=== PATIENT | female | born 1945 | race Caucasian/White ===

== ENCOUNTER 2017-11-30 19:12 | Observation (INO) | payer MEDICARE, OTHER, SELFPAY ==
[2017-11-30 19:44] VITALS: BP 146/89; PULSE 112; RESP 16; TEMP 36.6; O2SAT 94; BMI 21.3
--- NOTE | 2017-11-30 20:42 | ED.GIBLEED ---
HPI - GI Bleed General Chief complaint: GI Bleed Stated complaint: blood in stool,increased confusion Time Seen by Provider: 11/30/17 19:58 Source: patient Mode of arrival: ambulatory Limitations: no limitations History of Present Illness HPI Narrative: Patient is a 72-year-old female who is a poor historian and here with a friend. He says though she has had increased confusion over the last 2 weeks. She has had at least daily bright red blood per stool for maybe a year. She says her stool has become pencil thin. She has lost 30 lb of weight over the last year as well. She denies any abdominal pain nausea vomiting or fevers. She denies any shortness of breath chest pain or heart palpitations. However while I am talking to her, her heart rate has increased his into the 110's but her O2 sat is 85-86% with a good wave form and is correlating well. Related Data Home Medications Medication Instructions Recorded Confirmed No Known Home Medications 12/01/17 12/01/17 Allergies Allergy/AdvReac Type Severity Reaction Status Date / Time No Known Drug Allergies Allergy Verified 11/30/17 19:44 Review of Systems Review of Systems All systems reviewed & are unremarkable except as noted in HPI and below Constitutional Reports lethargy, Reports poor appetite and Reports weight loss (30 lb over 1 year) Eyes Denies change in vision, Denies eye discharge, Denies irritation and Denies loss of vision ENT Ears, Nose, Mouth, and Throat: Denies change in voice, Denies dizziness, Denies neck pain and Denies sore throat Cardiovascular Denies chest pain, Denies irregular heart rhythm, Denies lightheadedness, Denies palpitations, Denies dyspnea, Denies dyspnea on exertion and Denies orthopnea Respiratory Denies cough, Denies dyspnea, Denies dyspnea on exertion and Denies wheezing Gastrointestinal Gastrointestinal: Reports as per HPI Genitourinary Denies hematuria, Denies flank pain, Denies urinary incontinence and Denies urinary urgency Musculoskeletal Denies neck pain Integumentary/Breasts Denies pruritus, Denies erythema, Denies rash and Denies wounds Neurologic Reports as per HPI, Reports abnormal speech (Slow to respond), Denies dizziness, Denies loss of vision and Reports memory loss Psychiatric Reports memory loss Endocrine Denies palpitations Allergic/Immunologic Denies wheezing [facility] Medical History Hypothyroid (Acute) Social History household members: none Smoking Status: Never smoker Exam Initial Vital Signs Initial Vital Signs: Vital Signs Temperature 97.8 F 11/30/17 19:44 Pulse Rate 112 H 11/30/17 19:44 Respiratory Rate 16 11/30/17 19:44 Blood Pressure 146/89 H 11/30/17 19:44 Pulse Oximetry 94 11/30/17 19:44 Const General: cooperative, well developed and No anxious Nutritional Appearance: well nourished Orientation: alert, awake, oriented x3 and not confused HENMT Head: normal to inspection and normocephalic Ears: hearing grossly normal bilaterally Mouth: oral mucosae normal Eyes General: appearance normal, both eyes and all related structures Neck Neck: normal visual inspection, full ROM, no meningeal signs, trachea midline and No JVD Chest Chest: normal inspection of the chest Resp Effort & Inspection: normal respiratory effort, able to speak in complete sentences, respiratory effort not decreased, no respiratory distress and no use of accessory muscles Auscultation: clear to auscultation bilaterally, no rales, no rhonchi and no wheezes Cardio Rate: regular rate and tachycardic Rhythm: regular rhythm Heart Sounds: no click, no gallops, no murmurs and no rubs Pulses: normal peripheral pulses GI Inspection: non-distended Palpation: soft, no hepatosplenomegaly, No guarding, No pulsatile mass and No tender Auscultation: normal bowel sounds Rectal Exam: visual inspection normal, normal sphincter tone, heme negative stool and No mass Skin General: no rashes or lesions noted and No pallor Lesions: no lesions Rashes: no rashes Neuro General: alert, oriented x3, gait normal and no focal motor deficits Speech: speech normal Course Orders Ordered: ED Orders 11/30/17 20:05 Complete Blood Count AUTO DIFF Stat Comprehensive Metabolic Panel Stat Lipase Stat Troponin & CK Cardiac Panel Stat Type and Screen Stat 11/30/17 20:47 CT abdomen pelvis w con Stat CT angio chest PE protocol Stat Arterial Blood Gas Stat 11/30/17 21:00 Arterial Blood Gas Stat 11/30/17 21:01 XR chest 1V Stat 11/30/17 21:05 Lactate (Lactic Acid) Stat 12/01/17 00:28 Consult to Physician Routine Sodium Chloride (Normal Saline 0.9%) 1,000 mls @ 125 mls/hr IV CONT TAMMI Last Admin: 12/01/17 01:30 Dose: 125 mls/hr Discontinued Medications Albuterol/Ipratropium (Duoneb) 3 ml INH NOW ONE Stop: 11/30/17 22:01 Last Admin: 11/30/17 23:15 Dose: 3 ml Pantoprazole Sodium (Protonix) 40 mg IV NOW ONE Stop: 11/30/17 20:48 Last Admin: 11/30/17 21:11 Dose: 40 mg Vital Signs - 8 hr 11/30/17 21:00 11/30/17 22:33 11/30/17 23:27 Temperature Pulse Rate 110 H 81 90 Respiratory Rate 26 H 22 12 Blood Pressure Blood Pressure [Left Arm] 130/77 H 121/78 H Pulse Oximetry 99 96 11/30/17 23:34 12/01/17 00:02 12/01/17 00:31 Temperature 97.8 F 97.6 F Pulse Rate 105 H 118 H 87 Respiratory Rate 16 17 18 Blood Pressure 107/48 L 140/77 H Blood Pressure [Left Arm] 139/79 H Pulse Oximetry 95 97 MDM - GI Bleed Medical Records Attestation: I reviewed the patient's medical records. Lab Data Attestation: I reviewed the patient's lab results. Result diagrams: 11/30/17 20:05 11/30/17 20:05 Lab Results 11/30/17 11/30/17 11/30/17 Range/Units 20:05 20:05 20:05 WBC 6.0 (4.5-11.0) X10^3/uL RBC 5.07 (4.0-5.2) X10^6/uL Hgb 15.3 (12.0-16.0) g/dL Hct 45.7 (36-46) % MCV 90.1 (80-100) fL MCH 30.1 (26-34) PG MCHC 33.4 (30-36) % RDW 14.8 (11.6-14.8) % Plt Count 266 (150-400) X10^3/uL Neut % (Auto) 62.5 (50-75) % Lymph % (Auto) 25.6 (25-40) % Bowman % (Auto) 10.2 (3-14) % Eos % (Auto) 0.8 L (2-4) % Baso % (Auto) 0.9 (0-2) % Neut # (Auto) 3700 (9463-1788) /uL ABG pH (7.35-7.45) ABG pCO2 (35-45) mmHg ABG pO2 (80-105) mmHg ABG HCO3 (23-27) mmol/L ABG Total CO2 (23-27) mmol/L ABG O2 Saturation (95-100) % ABG Base Excess (-2-3) mmol/L FiO2 Sodium 142 (137-145) mmol/L Potassium 4.0 (3.4-5.1) mmol/L Chloride 104 (98-107) mmol/L Carbon Dioxide 27 (22-32) mmol/L BUN 17 (7-17) mg/dL Creatinine 0.90 (0.52-1.04) mg/dL Estimated GFR > 60.0 (>60) mL/min BUN/Creatinine Ratio 18.9 (6-22) Glucose 105 (80-110) mg/dL Lactate (0.7-2.1) mmol/L Calcium 9.5 (8.4-10.2) mg/dL Total Bilirubin 0.8 (0.2-1.3) mg/dL AST 42 H (14-36) IU/L ALT 30 (9-52) IU/L Alkaline Phosphatase 79 (38-126) U/L Total Creatine Kinase 57 (30-135) U/L Troponin I < 0.012 (0.01-0.034) ng/mL Total Protein 7.0 (6.3-8.2) g/dL Albumin 4.4 (3.5-5.0) g/dL Globulin 2.6 (1.7-4.1) g/dL Albumin/Globulin Ratio 1.7 (1.0-2.8) Lipase 74 (23-300) U/L Blood Type O Positive Antibody Screen Negative 11/30/17 11/30/17 Range/Units 21:00 21:05 WBC (4.5-11.0) X10^3/uL RBC (4.0-5.2) X10^6/uL Hgb (12.0-16.0) g/dL Hct (36-46) % MCV (80-100) fL MCH (26-34) PG MCHC (30-36) % RDW (11.6-14.8) % Plt Count (150-400) X10^3/uL Neut % (Auto) (50-75) % Lymph % (Auto) (25-40) % Bowman % (Auto) (3-14) % Eos % (Auto) (2-4) % Baso % (Auto) (0-2) % Neut # (Auto) (1277-5758) /uL ABG pH 7.51 H (7.35-7.45) ABG pCO2 28.9 L (35-45) mmHg ABG pO2 44 L* (80-105) mmHg ABG HCO3 23 (23-27) mmol/L ABG Total CO2 24 (23-27) mmol/L ABG O2 Saturation 85 L (95-100) % ABG Base Excess 0.0 (-2-3) mmol/L FiO2 50 Sodium (137-145) mmol/L Potassium (3.4-5.1) mmol/L Chloride (98-107) mmol/L Carbon Dioxide (22-32) mmol/L BUN (7-17) mg/dL Creatinine (0.52-1.04) mg/dL Estimated GFR (>60) mL/min BUN/Creatinine Ratio (6-22) Glucose (80-110) mg/dL Lactate 0.9 (0.7-2.1) mmol/L Calcium (8.4-10.2) mg/dL Total Bilirubin (0.2-1.3) mg/dL AST (14-36) IU/L ALT (9-52) IU/L Alkaline Phosphatase (38-126) U/L Total Creatine Kinase (30-135) U/L Troponin I (0.01-0.034) ng/mL Total Protein (6.3-8.2) g/dL Albumin (3.5-5.0) g/dL Globulin (1.7-4.1) g/dL Albumin/Globulin Ratio (1.0-2.8) Lipase (23-300) U/L Blood Type Antibody Screen ABG Data Attestation: I personally reviewed and interpreted this ABG as follows: Interpretation: Respiratory alkalosis and hypoxic Imaging Data Chest x-ray: Radiologist's impression: PROCEDURE: XR CHEST 1V INDICATIONS: hypoxic TECHNIQUE: One view of the chest was acquired. COMPARISON: None. FINDINGS: Surgical changes and devices: None. Lungs and pleura: No pleural effusions or pneumothorax. There is a 1 cm pulmonary opacity projecting over the right lower lobe. Hyperinflation. Mediastinum: Mediastinal contours appear normal. Heart size is normal. Bones and chest wall: No suspicious bony lesions. Overlying soft tissues appear unremarkable. IMPRESSION: Right lower lobe pulmonary opacity. Consider chest CT with contrast for further evaluation. Hyperinflation most consistent with COPD. Dictated by: Jerrell Bah M.D. on 11/30/2017 at 21:25 CT scan - chest: Radiologist's impression: PROCEDURE: CT ANGIO CHEST PE PROTOCOL INDICATIONS: hypoxia TECHNIQUE: After the administration of intravenous contrast, 2 mm thick sections acquired from the pulmonary apices to the posterior costophrenic angles. 3-dimensional maximum intensity projection (MIP) coronal and sagittal reformats were then acquired through the thorax. For radiation dose reduction, the following was used: automated exposure control, adjustment of mA and/or kV according to patient size. COMPARISON: [facility], CT, SOFT TISSUE NECK W CONTRAST, 11/04/2011, 11:39. FINDINGS: Image quality: Excellent. Pulmonary arteries: Pulmonary arteries are normal in size, and demonstrate no intraluminal filling defects to suggest central pulmonary embolism. Lungs and pleura: Dependent atelectasis right greater than left. Otherwise the lungs are clear. No pleural effusions or pneumothorax. Central and peripheral airways are patent. Mediastinum: Heart size is normal, without pericardial effusion. No mediastinal or hilar adenopathy. Thoracic aorta is mildly dilated proximally measuring up to 4 CM. Esophagus is normal in caliber, without hiatal hernia. Bones and chest wall: Age-indeterminate T7 and T12 vertebral body compression fractures. Thyroid gland is grossly normal where seen. No axillary or supraclavicular adenopathy. Abdomen: There is an 18 mm right adrenal nodule and multiple hepatic masses. Left renal scarring with dystrophic calcification. IMPRESSION: 1. No acute pulmonary emboli. 2. Dilatation of the aortic root measuring up to 4 CM. 3. Age-indeterminate T7 and T12 vertebral body compression fractures. 4. Multiple hepatic masses. Please refer to today's abdomen and pelvis CT for further evaluation. Dictated by: Jerrell Bah M.D. on 11/30/2017 at 22:04 CT scan - abdomen: Radiologist's impression: PROCEDURE: CT ABDOMEN PELVIS W CON INDICATIONS: gi bleed TECHNIQUE: After the administration of intravenous contrast, 5 mm thick sections acquired from the diaphragm to the symphysis. 5 mm coronal and sagittal reformats were acquired. For radiation dose reduction, the following was used: automated exposure control, adjustment of mA and/or kV according to patient size. COMPARISON: [facility], CT, SOFT TISSUE NECK W CONTRAST, 11/04/2011, 11:39. FINDINGS: Image quality: Excellent. ABDOMEN: Lung bases: Lung bases are clear. Heart size is normal. Solid organs: Innumerable hepatic metastasis measuring up to 3.4 CM. The gallbladder is contracted about a gallstone. There is no CT evidence of acute cholecystitis. The pancreas and spleen are normal. There is a 12 mm right adrenal nodule. Left adrenal gland is normal. Kidneys demonstrate cysts and superior left renal calcified scarring. Otherwise they are radiographically normal. Peritoneum and bowel: Irregular wall thickening in the distal sigmoid colon. There is a low-density mass extending posteriorly from this area measuring 3.5 x 2.3 CM (se 13 im 34). Appendix and small bowel are normal. Nodes and vessels: No retroperitoneal or mesenteric adenopathy by size criteria. Aorta and inferior vena cava are normal in size. Miscellaneous: No ventral hernias. PELVIS: Genitourinary: Bladder wall thickness is normal. There is a 3.3 cm right adnexal nodule. Uterus is present. Miscellaneous: No inguinal hernias. The there is pelvic lymphadenopathy (for example a right perirectal lymph node measures 9 mm (se 10 im 66). There are numerous further abnormal lymph nodes in the pelvic fat about the abnormal segment of sigmoid colon. Bones: No suspicious bony lesions. Age-indeterminate T12 vertebral body compression fracture. IMPRESSION: 1. Irregular distal sigmoid colon mass highly concerning for primary malignancy. A low-density lobulation of the mass extends posteriorly/superiorly and may represent a focal contained perforation or further soft tissue mass. There is no obstruction or surrounding inflammatory change. There are numerous pelvic lymph nodes which are abnormal. 2. Innumerable hepatic metastasis. These findings would be amenable to percutaneous guided sampling if needed. 3. Age-indeterminate T12 vertebral body compression fracture. 4. The gallbladder is contracted about a gallstone. There is no CT evidence of acute gallstone is. Dictated by: Jerrell Bah M.D. on 11/30/2017 at 22:10 MDM Narrative Medical decision making narrative: At no time did patient looked like she was in respiratory distress. No tachypnea or hyperventilation, though ABG is consistent with hyperventilation. She is placed on oxygen initially high-flow but has been able to be weaned down and is now on a couple liters. CT for PE is negative. He is not anemic. Abdominal CT does reveal a sigmoid mass with hepatic metastasis. I have discussed these results with patient. At this time she is questioning if she would want chemotherapy or radiation or any further testing. However due to her significant hypoxia initially recommend staying in hospital for treatment of hypoxia and further evaluation if warranted and wanted of abdominal mass. I have discussed case with Dr. Ortiz. At this time no clear real explanation of hypoxia. However she does have new abdominal mass Discharge Plan Departure Patient Disposition: Admitted As Inpatient Clinical Impression: Colon cancer, Acute respiratory failure Discharge Date/Time: 12/01/17 00:09 Interventions: ED Discharge Assessment Last Done: 12/01/17 00:02 Admit Date/Time: 11/30/17 23:14 Admit Provider: Danielle Ortiz
--- NOTE | 2017-11-30 20:47 | DI.CT.S_ITS ---
PROCEDURE: CT ANGIO CHEST PE PROTOCOL INDICATIONS: hypoxia TECHNIQUE: After the administration of intravenous contrast, 2 mm thick sections acquired from the pulmonary apices to the posterior costophrenic angles. 3-dimensional maximum intensity projection (MIP) coronal and sagittal reformats were then acquired through the thorax. For radiation dose reduction, the following was used: automated exposure control, adjustment of mA and/or kV according to patient size. COMPARISON: [facility], CT, SOFT TISSUE NECK W CONTRAST, 11/04/2011, 11:39. FINDINGS: Image quality: Excellent. Pulmonary arteries: Pulmonary arteries are normal in size, and demonstrate no intraluminal filling defects to suggest central pulmonary embolism. Lungs and pleura: Dependent atelectasis right greater than left. Otherwise the lungs are clear. No pleural effusions or pneumothorax. Central and peripheral airways are patent. Mediastinum: Heart size is normal, without pericardial effusion. No mediastinal or hilar adenopathy. Thoracic aorta is mildly dilated proximally measuring up to 4 CM. Esophagus is normal in caliber, without hiatal hernia. Bones and chest wall: Age-indeterminate T7 and T12 vertebral body compression fractures. Thyroid gland is grossly normal where seen. No axillary or supraclavicular adenopathy. Abdomen: There is an 18 mm right adrenal nodule and multiple hepatic masses. Left renal scarring with dystrophic calcification. IMPRESSION: 1. No acute pulmonary emboli. 2. Dilatation of the aortic root measuring up to 4 CM. 3. Age-indeterminate T7 and T12 vertebral body compression fractures. 4. Multiple hepatic masses. Please refer to today's abdomen and pelvis CT for further evaluation. Dictated by: Jerrell Bah M.D. on 11/30/2017 at 22:04 Approved by: Jerrell Bah M.D. on 11/30/2017 at 22:10
--- NOTE | 2017-11-30 20:47 | DI.CT.S_ITS ---
PROCEDURE: CT ABDOMEN PELVIS W CON INDICATIONS: gi bleed TECHNIQUE: After the administration of intravenous contrast, 5 mm thick sections acquired from the diaphragm to the symphysis. 5 mm coronal and sagittal reformats were acquired. For radiation dose reduction, the following was used: automated exposure control, adjustment of mA and/or kV according to patient size. COMPARISON: [facility], CT, SOFT TISSUE NECK W CONTRAST, 11/04/2011, 11:39. FINDINGS: Image quality: Excellent. ABDOMEN: Lung bases: Lung bases are clear. Heart size is normal. Solid organs: Innumerable hepatic metastasis measuring up to 3.4 CM. The gallbladder is contracted about a gallstone. There is no CT evidence of acute cholecystitis. The pancreas and spleen are normal. There is a 12 mm right adrenal nodule. Left adrenal gland is normal. Kidneys demonstrate cysts and superior left renal calcified scarring. Otherwise they are radiographically normal. Peritoneum and bowel: Irregular wall thickening in the distal sigmoid colon. There is a low-density mass extending posteriorly from this area measuring 3.5 x 2.3 CM (se 13 im 34). Appendix and small bowel are normal. Nodes and vessels: No retroperitoneal or mesenteric adenopathy by size criteria. Aorta and inferior vena cava are normal in size. Miscellaneous: No ventral hernias. PELVIS: Genitourinary: Bladder wall thickness is normal. There is a 3.3 cm right adnexal nodule. Uterus is present. Miscellaneous: No inguinal hernias. The there is pelvic lymphadenopathy (for example a right perirectal lymph node measures 9 mm (se 10 im 66). There are numerous further abnormal lymph nodes in the pelvic fat about the abnormal segment of sigmoid colon. Bones: No suspicious bony lesions. Age-indeterminate T12 vertebral body compression fracture. IMPRESSION: 1. Irregular distal sigmoid colon mass highly concerning for primary malignancy. A low-density lobulation of the mass extends posteriorly/superiorly and may represent a focal contained perforation or further soft tissue mass. There is no obstruction or surrounding inflammatory change. There are numerous pelvic lymph nodes which are abnormal. 2. Innumerable hepatic metastasis. These findings would be amenable to percutaneous guided sampling if needed. 3. Age-indeterminate T12 vertebral body compression fracture. 4. The gallbladder is contracted about a gallstone. There is no CT evidence of acute gallstone is. Dictated by: Jerrell Bah M.D. on 11/30/2017 at 22:10 Approved by: Jerrell Bah M.D. on 11/30/2017 at 22:20
[2017-11-30 20:56] LABS: Add Manual Diff / Slide Review NO; Basophils Percent Auto 0.9 % (0-2); Eosinophils Percent Auto 0.8 % (2-4); Hematocrit 45.7 % (36-46); Hemoglobin 15.3 g/dL (12.0-16.0); Lymphocytes Percent Auto 25.6 % (25-40); Mean Corpuscular HGB Conc 33.4 % (30-36); Mean Corpuscular Hemoglobin 30.1 PG (26-34); Mean Corpuscular Volume 90.1 fL (80-100); Monocytes Percent Auto 10.2 % (3-14); Neutrophils Absolute Auto 3700 /uL (3000-5900); Neutrophils Percent Auto 62.5 % (50-75); Platelet Count 266 X10^3/uL (150-400); Red Blood Cell Count 5.07 X10^6/uL (4.0-5.2); Red Cell Distribution Width 14.8 % (11.6-14.8)
[2017-11-30 21:00] VITALS: BP 130/77; PULSE 110; RESP 26
--- NOTE | 2017-11-30 21:01 | DI.RAD.S_ITS ---
PROCEDURE: XR CHEST 1V INDICATIONS: hypoxic TECHNIQUE: One view of the chest was acquired. COMPARISON: None. FINDINGS: Surgical changes and devices: None. Lungs and pleura: No pleural effusions or pneumothorax. There is a 1 cm pulmonary opacity projecting over the right lower lobe. Hyperinflation. Mediastinum: Mediastinal contours appear normal. Heart size is normal. Bones and chest wall: No suspicious bony lesions. Overlying soft tissues appear unremarkable. IMPRESSION: Right lower lobe pulmonary opacity. Consider chest CT with contrast for further evaluation. Hyperinflation most consistent with COPD. Dictated by: Jerrell Bah M.D. on 11/30/2017 at 21:25 Approved by: Jerrell Bah M.D. on 11/30/2017 at 21:30
[2017-11-30 21:02] LABS: Alanine Aminotransferase 30 IU/L (9-52); Albumin 4.4 g/dL (3.5-5.0); Albumin Globulin Ratio 1.7 (1.0-2.8); Alkaline Phosphatase 79 U/L (38-126); Aspartate Aminotransferase 42 IU/L (14-36); BUN Creatinine Ratio 18.9 (6-22); Bilirubin Total 0.8 mg/dL (0.2-1.3); Blood Urea Nitrogen 17 mg/dL (7-17); Calcium 9.5 mg/dL (8.4-10.2); Carbon Dioxide 27 mmol/L (22-32); Chloride 104 mmol/L (98-107); Creatine Kinase 57 U/L (30-135); Estimated Glomerular Filt Rate > 60.0 mL/min (>60); Globulin 2.6 g/dL (1.7-4.1); Glucose 105 mg/dL (80-110); HEMOLYSIS < 15 (0-50); Lipase 74 U/L (23-300); Sodium 142 mmol/L (137-145)
[2017-11-30] MEDS: PANTOPRAZOLE 40 MG VIAL IV (21:11)
[2017-11-30 21:22] LABS: Troponin I < 0.012 ng/mL (0.01-0.034)
[2017-11-30 21:32] LABS: Lactate (Lactic Acid) 0.9 mmol/L (0.7-2.1)
[2017-11-30 21:32] LABS: PCO2 ABG 28.9 mmHg (35-45); pH ABG 7.51 (7.35-7.45)
[2017-11-30 21:33] LABS: PO2 ABG 44 mmHg (80-105)
[2017-11-30 21:34] LABS: Fractionated Inspired Oxygen 50; HCO3 ABG 23 mmol/L (23-27); Oxygen Saturation ABG 85 % (95-100); TCO2 ABG 24 mmol/L (23-27)
[2017-11-30 22:33] VITALS: BP 121/78; PULSE 81; RESP 22; O2SAT 99
--- NOTE | 2017-11-30 22:39 | PC.NURSE ---
1999 Harpreet MILLAN completed POC urine with negative results. Urine not sent.
[2017-11-30] MEDS: ALBUTEROL/IPRATROPIUM 3 ML AMPUL INH (23:15)
[2017-11-30 23:27] VITALS: PULSE 90; RESP 12; O2SAT 96
[2017-11-30 23:34] VITALS: BP 139/79; PULSE 105; RESP 16; TEMP 36.6
--- NOTE | 2017-11-30 23:44 | PC.NURSE ---
attempt to call report. RN busy, will call back
--- NOTE | 2017-12-01 | DI.CT.S_ITS ---
PROCEDURE: CT HEAD/BRAIN WO/W CON INDICATIONS: metastatic cancer TECHNIQUE: 4.5 mm thick angled axial sections acquired from the foramen magnum to the vertex both before and after the administration of intravenous contrast, with coronal and sagittal reformats. For radiation dose reduction, the following was used: automated exposure control, adjustment of mA and/or kV according to patient size. COMPARISON: [facility], CT, CT ANGIO CHEST PE PROTOCOL, 11/30/2017, 21:12. [facility], CT, CT ABDOMEN PELVIS W CON, 11/30/2017, 21:12. FINDINGS: Image quality: Excellent. CSF spaces: Basal cisterns are patent. No extra-axial fluid collections. Ventricles are symmetric in size and shape. Brain: There are multiple hyperdense, ring enhancing masses involving the left frontal lobe, left posterior temporal lobe, right parietal lobe, and the left mid brain, consistent with intracranial metastases. The largest lesion is in the left frontal lobe measuring 2.4 cm in diameter. There is marked vasogenic edema in the left frontal lobe with effacement of cerebral sulci. No midline shift. Hyperattenuation of the masses may be associated with intratumoral bleed or calcification. Skull and face: Calvarium and visualized facial bones appear intact, without suspicious lesions. Sinuses: Visualized sinuses and mastoids are clear. IMPRESSION: Multiple hyperdense ring enhancing masses involving the left frontal and posterior temporal lobes, right parietal lobe, and mid brain, consistent with intracranial metastases. Hyperattenuation of the masses may be secondary to intratumoral bleed or calcification. The result was discussed with Dr. Obrien on 12/01/17 at 1515 hours. Dictated by: Jean Pierre Tsang M.D. on 12/01/2017 at 9:40 Transcribed by: DIXON on 12/01/2017 at 9:52 Approved by: Jean Pierre Tsang M.D. on 12/01/2017 at 18:19
--- NOTE | 2017-12-01 00:01 | PC.NURSE ---
Second attempt to call report unsuccessful.. RN still unable to take
[2017-12-01 00:02] VITALS: BP 107/48; PULSE 118; RESP 17; O2SAT 95
[2017-12-01 00:30] VITALS: BMI 21.7
[2017-12-01 00:31] VITALS: BP 140/77; PULSE 87; RESP 18; TEMP 36.4; O2SAT 97
[2017-12-01] MEDS: SODIUM CHLORIDE 0.9% 1,000 ML 125 ML IV (01:30)
--- NOTE | 2017-12-01 01:37 | PC.NURSE ---
Admitted to room 215 from ER, pt's. accompanied by her Mary. Oriented to her room, how to use her call light, TV & bed controls. Paged Dr. Ortiz the second time to get an order for anxiety med. Pt's. very restless & states I want drugs to help me relax so I can go to sleep. Awaiting call back from Dr. Ortiz. Will monitor.
--- NOTE | 2017-12-01 02:28 | PC.NURSE ---
Pt. still wide awake, requested to page Dr. Ortiz 1 more time to get med. to help her sleep. Paged Dr. Ortiz for the 3rd time. Awaiting call back.
[2017-12-01 05:55] VITALS: BP 125/77; PULSE 75; RESP 16; TEMP 36.4; O2SAT 96
[2017-12-01 07:20] VITALS: BP 118/72; PULSE 68; RESP 16; TEMP 36.4; O2SAT 98
[2017-12-01 09:00] VITALS: O2SAT 97
[2017-12-01] MEDS: SODIUM CHLORIDE 0.9% 1,000 ML 60 ML IV (10:24)
--- NOTE | 2017-12-01 11:52 | PC.NURSE ---
Patient, with her friend Mary at bedside, are very eager to leave to home today. CT scan completed and waiting for results. Patient wants to be discharged to home, with her results sent to her PCP Maricruz Chong.
[2017-12-01 12:28] VITALS: BP 104/57; PULSE 73; RESP 14; TEMP 36.4; O2SAT 96
--- NOTE | 2017-12-01 13:59 | PM.HP.1 ---
History of Present Illness Date Patient Seen: 12/01/17 Time Patient Seen: 13:59 Chief complaint: blood in stool,increased confusion Narrative: 72-year-old female presents with symptoms of increased confusion over the last 2 weeks and intermittent blood in the stool for a year. She has had 30 lb weight loss she has had abdominal pain. When in the emergency department is supposedly her oxygen dropped to 85% and there is actually a blood gas that shows hypoxemia CT was done and was totally unremarkable for PE or pathology in the lungs but she did have normal oxygenation thereafter on room air so uncertain why she was transiently hypoxic. A CT scan was done of the abdomen that showed a lesion in the colon and metastatic lesions in the liver. She was told that she possibly or probably had metastatic colon cancer. Because of her increased confusion she wanted to know if she had cancer in her brain also Patient History Medical History Hypothyroid (Acute) Family & Social History Social History: household members none Prior Living Arrangements House Safety & Behavioral: Feels Safe in Current Yes Environment Been Physically Hurt or No Threatened By a Person Suicidal Ideation Description None Suicide Plan Description No Plan Tobacco & Substance use: Smoking Status Never smoker alcohol intake frequency holiday/special occasion Substance Use Type does not use Meds Home Medications Medication Instructions Recorded Confirmed Type No Known Home Medications 12/01/17 12/01/17 History Allergies Allergy/AdvReac Type Severity Reaction Status Date / Time No Known Drug Allergies Allergy Verified 11/30/17 19:44 Review of Systems Review of Systems All systems reviewed & are unremarkable except as noted in HPI and below Exam Vital Signs (past 8 hours): - 12/01/17 07:20 12/01/17 09:00 12/01/17 12:28 Temperature 97.5 F L 97.6 F Pulse Rate 68 73 Respiratory Rate 16 14 Blood Pressure 118/72 104/57 L Pulse Oximetry 98 97 96 Fraction of Inspired Oxygen 32 Oxygen Delivery Method Nasal Cannula Oxygen Flow Rate 0 Narrative Exam Narrative: Pleasant elderly female no acute distress HEENT exam unremarkable Oropharynx clear Neck is supple Lungs clear Heart regular rhythm Abdomen soft nontender Lower extremities no edema Neuro exam awake alert some confusion on memory short-term otherwise oriented Objective Labs Result Diagrams: 11/30/17 20:05 11/30/17 20:05 Labs: Laboratory Results - last 24 hr 11/30/17 11/30/17 11/30/17 20:05 20:05 20:05 WBC 6.0 RBC 5.07 Hgb 15.3 Hct 45.7 MCV 90.1 MCH 30.1 MCHC 33.4 RDW 14.8 Plt Count 266 Neut % (Auto) 62.5 Lymph % (Auto) 25.6 Bradley % (Auto) 10.2 Eos % (Auto) 0.8 L Baso % (Auto) 0.9 Neut # (Auto) 3700 ABG pH ABG pCO2 ABG pO2 ABG HCO3 ABG Total CO2 ABG O2 Saturation ABG Base Excess FiO2 Sodium 142 Potassium 4.0 Chloride 104 Carbon Dioxide 27 BUN 17 Creatinine 0.90 Estimated GFR > 60.0 BUN/Creatinine Ratio 18.9 Glucose 105 Lactate Calcium 9.5 Total Bilirubin 0.8 AST 42 H ALT 30 Alkaline Phosphatase 79 Total Creatine Kinase 57 Troponin I < 0.012 Total Protein 7.0 Albumin 4.4 Globulin 2.6 Albumin/Globulin Ratio 1.7 Lipase 74 Blood Type O Positive Antibody Screen Negative 11/30/17 11/30/17 21:00 21:05 WBC RBC Hgb Hct MCV MCH MCHC RDW Plt Count Neut % (Auto) Lymph % (Auto) Bradley % (Auto) Eos % (Auto) Baso % (Auto) Neut # (Auto) ABG pH 7.51 H ABG pCO2 28.9 L ABG pO2 44 L* ABG HCO3 23 ABG Total CO2 24 ABG O2 Saturation 85 L ABG Base Excess 0.0 FiO2 50 Sodium Potassium Chloride Carbon Dioxide BUN Creatinine Estimated GFR BUN/Creatinine Ratio Glucose Lactate 0.9 Calcium Total Bilirubin AST ALT Alkaline Phosphatase Total Creatine Kinase Troponin I Total Protein Albumin Globulin Albumin/Globulin Ratio Lipase Blood Type Antibody Screen Assessment & Plan Plan: Assessment/Plan Narrative: One. Probable colon cancer with metastases. CT scan showing sigmoid colon mass and hepatic metastases. She also had a CT scan of the head showing multiple intracranial metastases. I talked to the patient and her friend about the these findings told her that she probably had metastatic colon cancer to the liver and brain . She did not want any further treatment for this. She wanted to go home and I think that is fine I did talk to her about possible radiation to the brain for palliation and symptom control but she did not have any interest in that at this point. She will follow up with her primary care physician on the [place]. Quality VTE Deep Vein Thrombosis/Pulmonary Embolism Present on Admission: No
--- NOTE | 2017-12-01 14:02 | CM.DANOTE ---
Discharge Planning/Care Management DCP: assessment: Case received, EMR reviewed and met 0900 with pt and her friend Mary.Introduced self and role. Pt is a 72 year old female who admitted last night to care of hospitalist team. PCP: Maricruz Chong Payer: [employer]. Pt was to have tests and then d/c. She was, this morning, up with SBA/FWW in room. P: CT results are back now. LINDA Tam reports pt desires home and she will followup with her PCP. She will take her records with her. Mary supportive of same. Will follow prn CM Discharge Assessment Start: 12/01/17 13:57 Freq: Status: Active Protocol: Document 12/01/17 13:58 ITV (Rec: 12/01/17 14:00 [email or web address] [id number]) Discharge Planning Assessment History Provided By Patient Friend Medical Record Prior Living Arrangements House Household Members none Discharge Plan Home Transportation Arrangement friend Mary at bedside, expects to drive pt home today to [place]. will need ferry Priority Board/ELECTRONIC OPERATOR can assist Additional Comment Pt and Mary confirm there is family out of state, they will update family when more is known Review Status In Process Next Review Type Continued Stay Review Document 12/01/17 14:02 ITV (Rec: 12/01/17 14:02 [email or web address] [id number]) Discharge Planning Assessment History Provided By Patient Friend Medical Record Prior Living Arrangements House Household Members none Discharge Plan Home Transportation Arrangement friend Mary at bedside, expects to drive pt home today to [place]. will need ferry Priority Board/ELECTRONIC OPERATOR can assist Additional Comment Pt and Mary confirm there is family out of state, they will update family when more is known Review Status In Process Next Review Type Continued Stay Review
--- NOTE | 2017-12-01 16:22 | PC.NURSE ---
1500 discharge order received, patient eager to go home today. Patient completed medical release/request for for authorization for records to be sent to her PCP to follow outpatient. Discharge instructions reviewed with patient and her friend Mary. IV dc'd intact, patient escorted out via wheelchair with all belongings (given boarding pass for ferry [place] to [facility]) by TRAIN CONDUCTOR to be discharged to home. Patient's friend states she will call PCP's office tomorrow to check in, patient has appointment scheduled for December 15.
== END 2017-12-01 15:00 | disposition home or self-care (01) ==
LOC: ED 22:34 → AC 12-01 11:27
PROVIDERS: Admitting Provider Internal Medicine; Emergency Provider Emergency Medicine; Family Provider Family Medicine; Visit Provider Internal Medicine
DX: R93.3 Abnormal findings on diagnostic imaging of other parts of digestive tract (principal); K92.1 Melena; R41.0 Disorientation, unspecified; J96.01 Acute respiratory failure with hypoxia; R93.2 Abnormal findings on diagnostic imaging of liver and biliary tract; R90.0 Intracranial space-occupying lesion found on diagnostic imaging of central nervous system
CPT/HCPCS: 36600; 70470; 71045; 71275; 74177; 80053; 81003; 82550; 82553; 82805; 83605; 83690; 84484; 85025; 86850; 86900; 86901; 93005; 93041; 94640; 94760; 96374; 99283; 99285; G0378; C9113; Q9967